=== PATIENT | female | born 2000 | race Caucasian/White ===

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

== ENCOUNTER 2019-08-27 22:05 | Emergency (ER) | payer BC ==
[~2019-08-27] VITALS: Ht 172.7 cm; Wt 61.6 kg
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
[2019-08-27] MEDS ORDERED: SPIR50TA4 PO (22:31)
[2019-08-27] MEDS ORDERED: SPIR100T4 PO (22:31)
[2019-08-27] MEDS ORDERED: ONDANSETRON 2MG/ML, 2ML ONE (22:36)
[2019-08-27 22:54] LABS: BASOPHILS # (AUTO) 0.03 x10^3/uL (0-0.3); BASOPHILS % (AUTO) 0 % (0-1); EOSINOPHILS # (AUTO) 0.03 x10^3/uL (0-0.8); EOSINOPHILS % (AUTO) 0 % (1-7); LYMPHOCYTES # (AUTO) 1.47 x10^3/uL (1-6.1); LYMPHOCYTES % (AUTO) 16 % (22-44); MD NO; MEAN CORPUSCULAR HEMOGLOBIN 32.3 pg (27.0-34.8); MEAN CORPUSCULAR HGB CONC 33.2 g/dL (32.4-35.8); MEAN CORPUSCULAR VOLUME 97.2 fL (80-100); MEAN PLATELET VOLUME 7.9 fL (7.4-10.4); MONOCYTES # (AUTO) 0.65 x10^3/uL (0-1.4); MONOCYTES % (AUTO) 7 % (2-9); NEUTROPHILS % (AUTO) 76 % (42-75); PLATELET COUNT 321 x10^3/uL (130-400); RED BLOOD COUNT 4.91 x10^6/uL (3.82-5.3); RED CELL DISTRIBUTION WIDTH 12.6 % (9.6-15.2)
[2019-08-27] MEDS ORDERED: SODIUM CHLORIDE FLUSH 10ML SYR IVF ONE (23:00)
[2019-08-27] MEDS ORDERED: SODIUM CHLORIDE 0.9% 1,000ML IVBOLUS ONE (23:00)
[2019-08-27] MEDS ORDERED: ONDANSETRON 2MG/ML, 2ML IVPush ONE (23:00)
[2019-08-27 23:03] LABS: ALANINE AMINOTRANSFERASE 21 U/L (12-78); ALBUMIN 5.1 g/dL (3.4-5.0); ANION GAP 15 mmol/L (5-15); CALCIUM 10.1 mg/dL (8.5-10.1); CHLORIDE 100 mmol/L (98-107); CREATININE 0.94 mg/dL (0.55-1.02)
[2019-08-27 23:08] LABS: ALKALINE PHOSPHATASE 85 U/L (45-117); BILIRUBIN,TOTAL 1.3 mg/dL (0.2-1.0); TOTAL PROTEIN 8.7 g/dL (6.4-8.2)
[2019-08-28 00:34] LABS: MICROSCOPIC INDICATED
[2019-08-28 00:43] VITALS: BP 120/66
== END 2019-08-28 01:24 | disposition home or self-care (01) ==
LOC: ED 08-28 01:18
DX: R11.2 Nausea with vomiting, unspecified (principal); E86.0 Dehydration; K59.00 Constipation, unspecified; R10.13 Epigastric pain
CPT/HCPCS: 36415; 76700; 80053; 81001; 83690; 84703; 85025; 87086; 96361; 96374; 99284; J2405; J7030

== ENCOUNTER 2019-10-21 12:07 | Emergency (ER) | payer BC ==
[~2019-10-21] VITALS: Ht 172.7 cm; Wt 56.2 kg
[~2019-10-21 12:07] MED LIST: SPIR100T4 PO; SPIR50TA4 PO
[2019-10-21 12:12] VITALS: BP 122/61
== END 2019-10-21 12:49 | disposition left against medical advice (07) ==
LOC: ED 12:43
DX: R11.2 Nausea with vomiting, unspecified (principal); K59.00 Constipation, unspecified; Z53.21 Procedure and treatment not carried out due to patient leaving prior to being seen by health care provider